=== PATIENT | female | born 1980 | race Caucasian/White ===

== ENCOUNTER 2025-01-03 01:27 | Emergency (ER) | payer BC ==
[2025-01-03] MEDS ORDERED: ONDANSETRON 4 MG/2 ML VIAL ONE (02:56)
[2025-01-03] MEDS ORDERED: KETOROLAC 30 MG/ML INJ ONE (02:56)
[2025-01-03] MEDS ORDERED: METOCLOPRAMIDE 10 MG/2mL INJ ONE (02:56)
[2025-01-03] MEDS ORDERED: MORPHINE 2 MG/ML SYR ONE (02:56)
[2025-01-03] MEDS ORDERED: NA CHLORIDE 0.9% 1,000 ML ONE (02:57)
[2025-01-03 03:11] LABS: PT Prothrombin Time 13.2 SECONDS (10-13.0); Protime INR 1.17
[2025-01-03 03:12] LABS: Absolute Lymphocytes (CBC) 1.2 K/uL (0.7-4.9); Hematocrit 42.5 % (36.0-45.0); Hemoglobin 14.5 g/dL (12.0-15.0); MCH 30.7 pg (27.0-35.0); MCHC 34.1 g/dL (32.0-36.0); MCV 90.1 fL (80-100); MPV 8.5 fL (7.6-11.3); Nucleated RBC Absolute Count 0.0 (0-0); Nucleated Red Blood Cells % 0.1 % (0-0); RBC Red Blood Cell Count 4.72 M/uL (3.86-4.86); White Blood Count 9.00 thou/uL (4.3-10.9)
[2025-01-03 03:48] LABS: ALT/SGPT 35 U/L (13-56); Albumin 3.6 g/dL (3.4-5.0); Albumin/Globulin Ratio 1.0 (1.1-1.8); Alkaline Phosphatase 72 U/L (45-117); Anion Gap 7.9 mEq/L (5.0-15.0); BUN Blood Urea Nitrogen 14 mg/dL (7-18); Globulin 3.5 g/dL (2.3-3.5); Glucose Level 137 mg/dL (74-106); NT PRO-BNP 24 pg/mL (<125); Thyroid Stimulating Hormone 2.580 uIU/mL (0.358-3.740); Troponin High Sensitivity 7.5 pg/mL (<58.9)
[2025-01-03 03:49] LABS: AST/SGOT 14 U/L (15-37); Bilirubin Indirect, Calculated 0.1 mg/dL (0.2-0.8); Magnesium 2.2 mg/dL (1.6-2.4); Potassium 3.9 mEq/L (3.5-5.1)
--- NOTE | 2025-01-03 06:02 | RAD REPORT ---
PROCEDURE: CT Angiography Chest With Intravenous Contrast CLINICAL INDICATION: The patient is 44 years old and is Female; Chest pain. TECHNIQUE: Axial computed tomographic angiography images of the chest with intravenous contrast. Sagittal and coronal reformatted images were created and reviewed. This CT exam was performed using one or more of the following dose reduction techniques: automated exposure control, adjustment of the mA a nd/or kV according to patient size, and/or use of iterative reconstruction technique. MIP reconstructed images were created and reviewed. COMPARISON: XR Chest 01/03/2025 and CTA Chest 01/05/2024. FINDINGS: PULMONARY ARTERIES: No pulmonary embolism. AORTA: No acute findings. No thoracic aortic aneurysm. LUNGS AND PLEURAL SPACES: Otherwise, no focal consolidation. No suspicious pulmonary mass or nodule . Mild dependent bibasilar subsegmental atelectasis. No significant effusion. No pneumothorax. HEART: No evidence of RV dysfunction. No cardiomegaly. No significant pericardial effusion. BONES/JOINTS: No dislocation. No displaced or depressed rib fractures. No appreciable sternal or vertebral fractures. SOFT TISSUES: Unremarkable LYMPH NODES: Unremarkable No enlarged lymph nodes. LIVER: Fatty infiltration of the liver. IMPRESSION: 1. No pulmonary embolism. No acute cardiopulmonary abnormality. 2. Hepatic steatosis. Electronically signed by: Tan Mcrae MD 01/03/2025 05:58 AM CDT RP Due to temporary technical issues with the PACS/[employer] reporting system, reports are being flex d by the in-house radiologist without review as a courtesy to ensure prompt reporting the interpreting radiologist is fully responsible for the content of the report. Transcribed Date/Time: 01/03/2025 6:02 AM
--- NOTE | 2025-01-03 06:09 | RAD REPORT ---
PROCEDURE: XR Chest, 1 View CLINICAL INDICATION: The patient is 44 years old and is Female; Chest Pain. TECHNIQUE: Frontal view of the chest. COMPARISON: XR Chest 03/28/2024 FINDINGS: LUNGS: No discrete focal consolidation. PLEURAL SPACE: No appreciable pleural effusion or pneumothorax. MEDIASTINUM: Unremarkable cardiomediastinal contour. BONES/JOINTS: No acute osseous abnormality. IMPRESSION: No acute cardiopulmonary abnormality. Electronically signed by: Tan Mcrae MD 01/03/2025 03:24 AM CDT Due to temporary technical issues with the PACS/[employer] reporting system, reports are being flex d by the in-house radiologist without review as a courtesy to ensure prompt reporting the interpreting radiologist is fully responsible for the content of the report. Transcribed Date/Time: 01/03/2025 6:08 AM
--- NOTE | 2025-01-03 06:22 | ER ---
Nurse's Notes [facility] Name: Kristina Horn Age: 44 yrs Sex: Female : 1980 Arrival Date: 01/03/2025 Time: 01:27 Bed 3 Private MD: Diagnosis: Acute atypical chest pain;History of factor V Leiden mutation on chronic anticoagulation Presentation: 01/03 01:56 Chief complaint: EMS states: chest pain, nausea, vomiting, and diarrhea about 3 hours cp4 ago. Coronavirus screen: Client denies travel out of the [place] in the last 14 days. At this time, the client does not indicate any symptoms associated with coronavirus-19. Ebola Screen: Patient negative for fever greater than or equal to 101.5 degrees Fahrenheit, and additional compatible Ebola Virus Disease symptoms Patient denies exposure to infectious person. Patient denies travel to an Ebola-affected area in the 21 days before illness onset. No symptoms or risks identified at this time. Risk Assessment: Do you want to hurt yourself or someone else? Patient reports no desire to harm self or others. Onset of symptoms was January 02, 2025 at 23:00. 01:56 Method Of Arrival: EMS: [facility] cp4 01:56 Acuity: CRYSTAL 3 cp4 02:00 Care prior to arrival: Medication(s) given: ASA, 81 mg, x 4, zofran 4 mg, Fentanyl 100 cp4 mcg. 06:27 Initial Sepsis Screen: Does the patient meet any 2 criteria? No. Patient's initial cp4 sepsis screen is negative. Does the patient have a suspected source of infection? No. Patient's initial sepsis screen is negative. Triage Assessment: 02:08 General: Appears in no apparent distress. uncomfortable, Behavior is calm, cooperative, cp4 appropriate for age. Pain: Complains of pain in chest. EENT: No signs and/or symptoms were reported regarding the EENT system. Neuro: Level of Consciousness is awake, alert, obeys commands, Oriented to person, place, time, situation. Cardiovascular: Patient's skin is warm and dry. Respiratory: Airway is patent Respiratory effort is even, unlabored. GI: Abdomen is round non-distended, Bowel sounds present X 4 quads. Abd is soft and non tender X 4 quads. Reports diarrhea, nausea, vomiting. : No signs and/or symptoms were reported regarding the genitourinary system. Derm: No signs and/or symptoms reported regarding the dermatologic system. Musculoskeletal: No signs and/or symptoms reported regarding the musculoskeletal system. 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 - Infectious Disease History:: Denies. - Social history:: Smoking status: Patient denies any tobacco usage or history of. - Family history:: not pertinent. Screenin:09 [facility] ED Fall Risk Assessment (Adult) History of falling in the last 3 months, cp4 including since admission No falls in past 3 months (0 pts) Confusion or Disorientation No (0 pts) Intoxicated or Sedated No (0 pts) Impaired Gait No (0 pts) Mobility Assist Device Used No (0 pt) Altered Elimination No (0 pt) Score/Fall Risk Level 0 - 2 = Low Risk Oriented to surroundings, Maintained a safe environment, Assessed \T\ reinforced patient's understanding of fall precautions, Hourly rounding (assess needs \T\ fall precautionary measures) done. Abuse screen: Denies threats or abuse. Denies injuries from another. Nutritional screening: No deficits noted. Tuberculosis screening: No symptoms or risk factors identified. Never had TB. Assessment: 02:09 Reassessment: No changes from previously documented assessment. cp4 03:00 Reassessment: Patient appears in no apparent distress at this time. Patient and/or cp4 family updated on plan of care and expected duration. Pain level reassessed. Patient is alert, oriented x 3, equal unlabored respirations, skin warm/dry/pink. 04:00 Reassessment: Patient appears in no apparent distress at this time. Patient and/or cp4 family updated on plan of care and expected duration. Pain level reassessed. Patient is alert, oriented x 3, equal unlabored respirations, skin warm/dry/pink. 05:00 Reassessment: Patient appears in no apparent distress at this time. Patient and/or cp4 family updated on plan of care and expected duration. Pain level reassessed. Patient is alert, oriented x 3, equal unlabored respirations, skin warm/dry/pink. Vital Signs: 02:07 BP 125 / 75; Pulse 73; Resp 18; Temp 98.2; Pulse Ox 100% on 2 lpm NC; Weight 77.11 kg; cp4 Height 5 ft. 2 in. ; Pain 6/10; 03:25 BP 126 / 72; Pulse 69; Resp 18; Pulse Ox 100% ; cp4 05:51 BP 122 / 72; Pulse 69; Resp 18; Pulse Ox 98% ; cp4 06:26 BP 116 / 71; Pulse 68; Resp 18; Pulse Ox 99% ; cp4 02:07 Body Mass Index 31.09 (77.11 kg, 157.48 cm) cp4 02:07 Pain Scale: Adult cp4 Parviz Coma Score: 04:20 Eye Response: spontaneous(4). Verbal Response: oriented(5). Motor Response: obeys sp4 commands(6). Total: 15. ED Course: 01:46 Patient arrived in ED. rv1 01:56 Darya Saleh is Primary Nurse. cp4 01:56 Jhon Acosta MD is Attending Physician. sp4 01:58 Triage completed. cp4 02:00 No provider procedures requiring assistance completed. Maintain EMS IV. Dressing cp4 intact. Good blood return noted. Site clean \T\ dry. Gauge \T\ site: 22 G R hand. 02:08 Arm band placed on right wrist. Patient placed in an exam room, on a stretcher. cp4 02:09 Bed in low position. Call light in reach. Side rails up X 1. cp4 02:14 Initial lab(s) drawn, by ED staff, sent to lab. EKG done, by ED staff, reviewed by cp4 Jhon Acosta MD. 02:39 XRAY Chest (1 view) In Process Unspecified. EDMS 02:42 Inserted saline lock: 22 gauge in left forearm, using aseptic technique. Flushed with cp4 10 mL NS. 04:47 CT Chest For PE Angio In Process Unspecified. EDMS 06:21 Sudheer Roblero DO is Referral Physician. sp4 06:27 intact, bleeding controlled, No redness/swelling at site. Pressure dressing applied. cp4 06:27 Provided Education on: chest pain. cp4 Administered Medications: 02:58 Drug: metoCLOPramide IVP 10 mg IVP once; over 1 to 2 minutes Route: IVP; Site: left cp4 forearm; 06:28 Follow up: Response: No adverse reaction; Nausea is decreased cp4 02:59 Drug: NS 0.9% IV 1000 ml IV at 1000 ml once; to be given as a bolus over 60 minutes cp4 Route: IV; Rate: 1000 ml; Site: left forearm; 06:28 Follow up: IV Status: Completed infusion cp4 02:59 Drug: Ketorolac IVP 30 mg IVP once Route: IVP; Site: left forearm; cp4 06:28 Follow up: Response: No adverse reaction; Pain is decreased cp4 02:59 Drug: Ondansetron IVP 4 mg IVP once; over 2 minutes Route: IVP; Site: left forearm; cp4 06:28 Follow up: Response: No adverse reaction; Nausea is decreased cp4 02:59 Drug: morphine IVP or IV 4 mg IVP once over 4 mins Route: IVP; Infused Over: 4 mins; cp4 Site: left forearm; 06:28 Follow up: Response: No adverse reaction; Pain is decreased cp4 Medication: 02:09 VIS not applicable for this client. cp4 Outcome: 06:21 Discharge ordered by . sp4 06:27 Discharged to home ambulatory, cp4 06:27 Condition: stable 06:27 Discharge instructions given to patient, Instructed on discharge instructions, follow up and referral plans. medication usage, Demonstrated understanding of instructions, follow-up care, medications, Prescriptions given X 3, 06:34 Patient left the ED. cp4 Signatures: Dispatcher [employer] EDShelby Johnson Sergey, MD MD sp4 Darya Saleh cp4
--- NOTE | 2025-01-03 06:22 | EDPHYS ---
Physician Documentation [facility] Name: Lena Neri Age: 44 yrs Sex: Female : 1980 Arrival Date: 01/03/2025 Time: 01:27 Bed 3 Private MD: ED Physician Jhon Acosta HPI: 01/03 04:20 This 44 yrs old Female presents to ER via EMS with unknown complaint. sp4 01/04 03:08 44-year-old female presents with acute onset chest pain. Patient reports 5 out of 10 sp4 midsternal chest pressure associated with 4 episodes of vomiting diaphoresis as well. Patient has history of factor V Leiden mutation with associated previous DVTs. Patient takes Eliquis 5 mg p.o. twice daily. No other medical history reported.. 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 - Infectious Disease History:: Denies. - Social history:: Smoking status: Patient denies any tobacco usage or history of. - Family history:: not pertinent. ROS: 01/04 03:08 Constitutional: Negative for fever, chills, and weight loss, positive for midsternal sp4 chest pain diaphoresis and vomiting All other systems are negative, Exam: 01/03 04:19 ECG was reviewed by the Attending Physician. EKG at 0 212 normal sinus rhythm rate 64 sp4 normal EKG. 04:20 Constitutional: This is a well developed, well nourished patient who is awake, alert, sp4 and in no acute distress. Head/Face: Normocephalic, atraumatic. Eyes: Pupils equal round and reactive to light, extra-ocular motions intact. Lids and lashes normal. Conjunctiva and sclera are not injected. Cornea within normal limits. Periorbital areas with no swelling, redness, or edema. ENT: Nares patent. No nasal discharge, no septal abnormalities noted. Tympanic membranes are normal and external auditory canals are clear. Oropharynx with no redness, swelling, or masses, exudates, or evidence of obstruction, uvula midline. Mucous membranes moist. Neck: Trachea midline, no thyromegaly or masses palpated, and no cervical lymphadenopathy. Supple, full range of motion without nuchal rigidity, or vertebral point tenderness. Chest/axilla: Normal chest wall appearance and motion. Nontender with no deformity. No lesions are appreciated. Cardiovascular: Regular rate and rhythm with a normal S1 and S2. No gallops, murmurs, or rubs. No pulse deficits. Respiratory: Lungs have equal breath sounds bilaterally, clear to auscultation and percussion. No rales, rhonchi or wheezes noted. No increased work of breathing, no retractions or nasal flaring. Abdomen/GI: Soft, with normal bowel sounds. No distension or tympany. No guarding or rebound. No evidence of tenderness throughout. Back: No spinal tenderness. No costovertebral tenderness. Skin: Warm, dry with normal turgor. Normal color with no rashes, no lesions, and no evidence of cellulitis. MS/ Extremity: Pulses equal, no cyanosis. Neurovascular intact. Full, normal range of motion. Neuro: Awake and alert, GCS 15, oriented to person, place, time, and situation. Cranial nerves II-XII grossly intact. Motor strength 5/5 in all extremities. Sensory grossly intact. Psych: Awake, alert, with orientation to person, place and time. Behavior, mood, and affect are within normal limits Vital Signs: 02:07 BP 125 / 75; Pulse 73; Resp 18; Temp 98.2; Pulse Ox 100% on 2 lpm NC; Weight 77.11 kg; cp4 Height 5 ft. 2 in. ; Pain 6/10; 03:25 BP 126 / 72; Pulse 69; Resp 18; Pulse Ox 100% ; cp4 05:51 BP 122 / 72; Pulse 69; Resp 18; Pulse Ox 98% ; cp4 06:26 BP 116 / 71; Pulse 68; Resp 18; Pulse Ox 99% ; cp4 02:07 Body Mass Index 31.09 (77.11 kg, 157.48 cm) cp4 02:07 Pain Scale: Adult cp4 Parviz Coma Score: 04:20 Eye Response: spontaneous(4). Verbal Response: oriented(5). Motor Response: obeys sp4 commands(6). Total: 15. MDM: 02:25 Medical Screening Exam initiated sp4 06:20 ED course: COMPARISON: XR Chest 01/03/2025 and CTA Chest 01/05/2024. FINDINGS: sp4 PULMONARY ARTERIES: No pulmonary embolism. AORTA: No acute findings. No thoracic aortic aneurysm. LUNGS AND PLEURAL SPACES: Otherwise, no focal consolidation. No suspicious pulmonary mass or nodule. Mild dependent bibasilar subsegmental atelectasis. No significant effusion. No pneumothorax. HEART: No evidence of RV dysfunction. No cardiomegaly. No significant pericardial effusion. RADIOLOGY SERVICES REPORT (Continued) Name: LENA NERI CC: LENA NERI / Report: [id number] Radiology Services Report Page 2 of 2 BONES/JOINTS: No dislocation. No displaced or depressed rib fractures. No appreciable sternal or vertebral fractures. SOFT TISSUES: Unremarkable LYMPH NODES: Unremarkable No enlarged lymph nodes. LIVER: Fatty infiltration of the liver. IMPRESSION: 1. No pulmonary embolism. No acute cardiopulmonary abnormality. 2. Hepatic steatosis. 01/04 03:10 Differential diagnosis: acute pericarditis, anxiety, coronary artery disease chest wall sp4 pain, congestive heart failure costochondritis, esophagitis, gastritis. HEART Score: History: Moderately Suspicious (1), ECG: Normal (0), Age: < or = 45 years (0), Risk Factors: No Risk Factors Known (0), Troponin: < or = 1 x Normal Limit (0), Total Score = 1. Data reviewed: vital signs, nurses notes, lab test result(s), EKG, radiologic studies, CT scan. Consideration of Admission/Observation Escalation of care including admission/observation considered. ED course: CT unremarkable. Workup otherwise unremarkable. Patient stable for discharge home.. 01/03 01:56 Order name: Basic Metabolic Panel; Complete Time: : sp4 01/03 01:56 Order name: CBC with Diff; Complete Time: : sp4 01/03 01:56 Order name: LFT's; Complete Time: : sp4 01/03 01:56 Order name: Magnesium; Complete Time: sp4 01/03 01:56 Order name: NT PRO-BNP; Complete Time: sp4 01/03 01:56 Order name: PT-INR; Complete Time: sp4 01/03 01:56 Order name: Troponin HS; Complete Time: : sp4 01/03 01:56 Order name: TSH; Complete Time: 05:32 sp4 01/03 02:25 Order name: Test, Serum; Complete Time: 05:32 sp4 01/03 05:49 Order name: Troponin High Sensitivity sp4 01/03 01:56 Order name: XRAY Chest (1 view); Complete Time: 06:13 sp4 01/03 02:25 Order name: CT Chest For PE Angio; Complete Time: 06:13 sp4 01/03 01:56 Order name: Cardiac monitoring; Complete Time: 02: sp4 01/03 01:56 Order name: EKG - Nurse/Tech; Complete Time: 02:10 sp4 01/03 01:56 Order name: IV Saline Lock; Complete Time: 02:4 01/03 01:56 Order name: Labs collected and sent; Complete Time: 02: sp4 01/03 01:56 Order name: O2 Per Protocol; Complete Time: 02: sp4 01/03 01:56 Order name: O2 Sat Monitoring; Complete Time: 02:10 4 EC/30 02:12 Rate is 64 beats/min. Rhythm is regular, Normal Sinus Rhythm. QRS [place] is Normal. [place] sp4 interval is normal. QRS interval is normal. QT interval is normal. No Q waves. T waves are Normal. No ST changes noted. Clinical impression: Normal ECG. Interpreted by me. Reviewed by me. Administered Medications: 02:58 Drug: metoCLOPramide IVP 10 mg IVP once; over 1 to 2 minutes Route: IVP; Site: left cp4 forearm; 06:28 Follow up: Response: No adverse reaction; Nausea is decreased cp4 02:59 Drug: NS 0.9% IV 1000 ml IV at 1000 ml once; to be given as a bolus over 60 minutes cp4 Route: IV; Rate: 1000 ml; Site: left forearm; 06:28 Follow up: IV Status: Completed infusion cp4 02:59 Drug: Ketorolac IVP 30 mg IVP once Route: IVP; Site: left forearm; cp4 06:28 Follow up: Response: No adverse reaction; Pain is decreased cp4 02:59 Drug: Ondansetron IVP 4 mg IVP once; over 2 minutes Route: IVP; Site: left forearm; cp4 06:28 Follow up: Response: No adverse reaction; Nausea is decreased cp4 02:59 Drug: morphine IVP or IV 4 mg IVP once over 4 mins Route: IVP; Infused Over: 4 mins; cp4 Site: left forearm; 06:28 Follow up: Response: No adverse reaction; Pain is decreased cp4 Disposition: 01/04 03:11 Chart complete. sp4 Disposition Summary: 01/03/25 06:21 Discharge Ordered Notes: Location: Home sp4 Problem: new sp4 Symptoms: have improved sp4 Condition: Stable sp4 Diagnosis - Acute atypical chest pain sp4 - History of factor V Leiden mutation on chronic anticoagulation sp4 Followup: sp4 - With: Sudheer Roblero, DO - When: 7 - 10 days - Reason: Recheck today's complaints Discharge Instructions: - Discharge Summary Sheet sp4 - Gastritis, Adult, [id number] sp4 - Clear Liquid Diet, Adult, [id number] sp4 Forms: - Patient Portal Instructions sp4 Prescriptions: - famotidine 40 mg Oral tablet - take 1 tablet ORAL route 2 times per day for 30 days; 60 tablet; Refills: 0, sp4 Product Selection Permitted - Tramadol 50 mg Oral Tablet - take 1 tablet ORAL route every 8 hours as needed; 12 tablet; Refills: 0, sp4 Product Selection Permitted - ondansetron 8 mg Oral Tablet,disintegrating - take 1 tablet ORAL route every 8 hours PRN nausea; 30 tablet; Refills: 0, sp4 Product Selection Permitted Signatures: Dispatcher [employer] Jhon Peña MD MD sp4 Darya Saleh 4 Corrections: (The following items were deleted from the chart) 01/03 01:56 01:56 BASIC METABOLIC PANEL+C.LAB.BRZ ordered. EDMS EDMS 01:56 01:56 CBC+H.LAB.BRZ ordered. EDMS EDMS 01:56 01:56 HEPATIC FUNCTION+C.LAB.BRZ ordered. EDMS EDMS 01:56 01:56 MAGNESIUM+C.LAB.BRZ ordered. EDMS EDMS 01:56 01:56 PROBNP+C.LAB.BRZ ordered. EDMS EDMS 01:56 01:56 PROTIME (+INR)+COAG.LAB.BRZ ordered. EDMS EDMS 01:56 01:56 Troponin High Sensitivity+C.LAB.BRZ ordered. EDMS EDMS 01:56 01:56 Chest Single View+RAD.RAD.BRZ ordered. EDMS EDMS 01:57 01:57 THYROID STIMULAT HORMONE+C.LAB.BRZ ordered. EDMS EDMS
[2025-01-03 06:39] VITALS: TEMP 98.2
[2025-01-03 06:42] VITALS: BP 116/71; O2SAT 99
== END 2025-01-03 06:34 | disposition home or self-care (01) ==
LOC: ER 01:27
DX: R07.89 Other chest pain (principal); D68.51 Activated protein C resistance; Z86.718 Personal history of other venous thrombosis and embolism; Z79.01 Long term (current) use of anticoagulants
CPT/HCPCS: 96361; 93005; 85025; 80048; 36415; 83735; 84703; 85610; 80076; 84443; 84484 ×2; 83880; 71275; 71045; 96375; 96374; 99284; Q9967; J1885; J2765; J2270; J2405; J7030